=== PATIENT | male | born 1975 | race African-American/Black ===

== ENCOUNTER 2016-04-28 05:07 | Inpatient (IN) | payer OTHER ==
[~2016-04-28] VITALS: Ht 180.3 cm; Wt 55.8 kg
[2016-04-28] VITALS (49 sets, daily range): BP systolic 128–268; BP diastolic 80–167
--- NOTE | ~2016-04-28 | EKG ---
[address] [place] [address] ELECTROCARDIOGRAM REPORT Name: WANDY CURTIS Room #: 242-P ADM IN M.R.#: [id number] Admission: 04/28/16 Attend Phys: Gulshan Salinas Discharge: Date of : 77 Report #: [id number] THIS REPORT FOR: //name// [facility] ED Test Date: 2016-04-28 Test Time: 05:07:05 Pat Name: WANDY PAYNETRINA Department: Room: [facility] Gender: M Director Business Development: . 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
--- NOTE | ~2016-04-28 | HC ---
[facility] [place] [address] [place] [address] CONSULTATION Name: WANDY CURTIS Room #: 242-P [facility] IN M.R.#: [id number] Admission: 04/28/16 Attend Phys: Gulshan Salinas Discharge: Date of : 77 Report #: [id number] THIS REPORT FOR: //name// CC: FAM unknown Gulshan Salinas DATE OF SERVICE: 05/11/2016 REFERRING PROVIDER: Gulshan Salinas MD. REASON FOR CONSULTATION: Respiratory failure with request for tracheostomy and PEG tube placement. HISTORY OF PRESENT ILLNESS: The patient is a 40-year-old -[place] male with a history of poorly controlled diabetes mellitus since age 8, who has had multiple hospitalizations secondary to complications related to poor glycemic control. The patient was recently found to have an outside cardiac arrest and has been admitted to our facility for the past 2 weeks where he has been intubated on the ventilator with no purposeful movement and showing significant seizure activity. The patient has been on hemodialysis secondary to end-stage renal disease and as he is unable to be weaned from the ventilator, a request was made for evaluation for tracheostomy and PEG tube placement. PAST MEDICAL HISTORY: Diabetes mellitus, hypertension, end-stage renal disease on hemodialysis, dementia and possible schizophrenia. HOME MEDICATIONS: Aspirin, oxcarbazepine, Lipitor, trazodone, insulin, Abilify, Tylenol, hydralazine, Sevelamer, oxycodone, ipratropium, albuterol, Ativan, Geodon, Epogen, Pulmicort, clonidine, Benadryl, Zofran, carvedilol, diltiazem and lisinopril. ALLERGIES: To NSAIDs. FAMILY HISTORY: Reviewed and noncontributory. SOCIAL HISTORY: The patient does not utilize alcohol or illicit drugs, but does smoke cigarettes. REVIEW OF SYSTEMS: Unobtainable secondary to the patient's intubated, nonresponsive status. PHYSICAL EXAMINATION: VITAL SIGNS: Temperature 99.7, pulse 91, respirations 27, blood pressure 156/78. He weighs 143 pounds. GENERAL: He is intubated with no purposeful movement, but he is in no acute distress. [address] [address] CONSULTATION Name: WANDY CURTIS Cisco Room #: 242-P [facility] IN [facility].#: [id number] Admission: 04/28/16 Attend Phys: Gulshan Salinas Discharge: Date of : 77 Report #: [id number] HEENT: Normocephalic, atraumatic. Sclerae are anicteric. NECK: Supple, without lymphadenopathy. Trachea midline. HEART: Tachycardic, but regular rhythm. LUNGS: Coarse breath sounds at the bases bilaterally. ABDOMEN: Soft, nontender, nondistended. GENITOURINARY: Normal external male genitalia. EXTREMITIES: No clubbing or cyanosis, but does have 1+ edema of the bilateral lower extremities. NEUROLOGIC: Does not respond to verbal or painful stimuli. PSYCHIATRIC: Unobtainable secondary to he is intubated, nonresponsive status. SKIN AND INTEGUMENT: No abnormal lesions or moles. LABORATORY AND X-RAY DATA: CBC showed a white blood cell count of 18,500, hemoglobin 7.2, platelets 325,000. He has a left shift with 93% neutrophils. Creatinine is 7.1, albumin was low at 2.2. Chest x-ray shows no acute process. ASSESSMENT AND PLAN: A 40-year-old -[place]ovenian male with respiratory failure who is ventilator dependent as well as an outside hospital cardiac arrest with no purposeful movement at this time and suspicion for anoxic brain injury. 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 The patient's prognosis overall is quite poor; however, in light of the family's wishes to proceed, he is certainly a candidate for tracheostomy and PEG tube placement. I would request 1 final conversation with the patient's family and decision maker to discuss the possibility of palliative care prior to proceeding to the operating room, however. For that reason, I will schedule the patient in the operating room on Wednesday morning to give enough time for those discussions to occur hopefully tomorrow. I sincerely appreciate this consult. I will follow along and leave any further recommendations in the patient's chart as appropriate. <ELECTRONICALLY SIGNED> By: Casey Sagastume MD, FACS 05/13/16 0736 1551 1622 Casey Sagastume MD, FACS /nt
--- NOTE | ~2016-04-28 | EEG ---
[facility] [place] [address] [place] [address] ELECTROENCEPHALOGRAM Name: WANDY CURTIS Room #: 242-P ADM IN M.R.#: [id number] Admission: 04/28/16 Attend Phys: Gulshan Berman Discharge: Date of : 77 Report #: [id number] THIS REPORT FOR: //name// CC: FAM unknown Gulshan Salinas INDICATIONS: The patient is a 40-year-old male who has been in status epilepticus. The patient is currently unresponsive on the ventilator. DESCRIPTION: At a sensitivity of 3 mcv, the record consists of low amplitude, 3-4 cycle per second activity, which is diffuse and bilaterally symmetrical. EKG artifact is noted. On this recording, very intermittent sharp waves were seen towards the end of the recording, and predominant over the frontal head regions. There is no evidence of status epilepticus. IMPRESSION: This is an abnormal adult record, because of significant attenuation of the background record. There is no evidence of status epilepticus on this recording. <ELECTRONICALLY SIGNED> By: Nel Blood DO 05/02/16 0834 1547 1805 Nel Blood DO /nt
--- NOTE | ~2016-04-28 | EEG ---
[facility] [address] [place] [address] ELECTROENCEPHALOGRAM Name: WANDY CURTIS Room #: 242-P ADM IN M.R.#: [id number] Admission: 04/28/16 Attend Phys: Gulshan Berman Discharge: Date of : 77 Report #: [id number] THIS REPORT FOR: //name// CC: FAM unknown Gulshan Salinas DATE OF SERVICE: 04/29/2016 This patient is being evaluated for the possibility of seizure. EEG was done by placing the electrodes by standard 10-20 system of electrode placement. Both referential and sequential montages were used for recording. Background activity in this patient's EEG goes to about 9 Hz and 30-40 microvolt. It is reasonably well formed on occasions, although alpha coma cannot be fully excluded. EEG is very unusual and the fact that the patient will have a pretty nicely formed background activity and then the EEG will become very low voltage and flat, sometime with seizure and sometime without seizure clinically. Photic stimulation was unremarkable. IMPRESSION: This is a very unusual EEG because this patient will have reasonably well formed background activity and then EEG will become very low voltage sometime with clinical seizure and sometime without clinical seizure. That is an extremely unusual finding. If strong clinical correlation is present, it may be desirable to treat this patient with anticonvulsant and repeat the EEG is about 24 hours. Clinical correlation is recommended. Thank you very much for this referral. <ELECTRONICALLY SIGNED> By: Nando Daigle MD 05/01/16 1235 1805 1817 MD zina Roth
--- NOTE | ~2016-04-28 | HC ---
[facility] [place] [address] [place] [address] CONSULTATION Name: WANDY CURTIS Cisco Room #: 242-P ADM IN M.R.#: [id number] Admission: 04/28/16 Attend Phys: Gulshan Salinas Discharge: Date of : 77 Report #: [id number] THIS REPORT FOR: //name// CC: FAM unknown Gulshan Salinas DATE OF SERVICE: 04/28/2016 REASON FOR CONSULTATION: Renal failure and related issues. HISTORY OF PRESENT ILLNESS: This is a 40-year-old male who has end-stage renal disease and is chronic hemodialysis patient. We have seen him in the hospital numerous times. The last time he was in [facility] was in the mid portion of January 2016 and he presented with his usual need for dialysis, blood pressure control. Over the recent couple of months, he has been getting more of a hospital care at [facility]. In fact, he was in [facility] as recently as 3 days ago. I am uncertain when he was actually discharged, but he was discharged back to his care center, that is, [facility]. Reportedly, early this morning, the patient was found unresponsive and had a cardiac arrest. EMS was called. They did resuscitative measures and were able to revive him back to having a blood pressure and a heart rate. He presented to the emergency room at 5:05 this morning. The additional resuscitative measures were carried out. The patient was then admitted to the intensive care unit. He is in the ICU at this time on the ventilator. He has been started on hypothermia protocol. I would note that his temperature was already down to 34 degrees centigrade and I have asked the nursing staff to stop the chilled saline infusion as he is already volume overloaded. From a renal standpoint, the patient has end-stage renal disease and is a chronic hemodialysis patient. He normally dialyzes 3 times weekly. He has had major problems with compliance, blood pressure control. His blood pressure does tend to be very high most of the time. He also has diabetes mellitus chronically on insulin. He has had previous left upper arm fistula placement. He has had a previous left knee surgery. MEDICATIONS: Listed on admission include some clonidine 0.3 mg t.i.d., carvedilol 25 mg b.i.d., diltiazem 300 mg daily, lisinopril 40 mg daily, aspirin, atorvastatin 40 mg daily, trazodone 50 mg at bedtime, insulin, Renvela as a phosphate binder, multiple p.r.n. medications. ALLERGIES: Listed are NONSTEROIDALS; reaction is unknown. FAMILY HISTORY: Noncontributory. SOCIAL HISTORY: The patient has been in and out of the [facility] for some time, but mostly has been in the hospital [place] [address] CONSULTATION Name: KIRSTENWANDY Room #: 242-P [facility] IN M.R.#: [id number] Admission: 04/28/16 Attend Phys: Gulshan Salinas Discharge: Date of : 77 Report #: [id number] REVIEW OF SYSTEMS: Unobtainable from the patient or from the records at this time. PHYSICAL EXAMINATION: GENERAL: The patient is seen in the intensive care unit. He is orally intubated. VITAL SIGNS: Blood pressure 183/105, heart rate is 74, respiratory rate 16, oxygen saturation 100%, temperature ____ degrees centigrade. HEENT: Shows pupils are 2 mm. They are mildly responsive. Sclerae nonicteric. Oral mucosa is moist. NECK: Supple. No JVD. CHEST: Shows coarse breath sounds bilaterally. HEART: Has a regular rate and rhythm. ABDOMEN: Quiet. No organomegaly or masses are palpable. EXTREMITIES: Show diffuse 1-2+ peripheral edema. Extremities are cool, commensurate with his hypothermia. Left upper arm fistula is pulsatile. There is some movement/myoclonus in all extremities. He does not appear to be exhibiting any seizure behavior, but I cannot tell at this point whether this is posturing or whether this is purposeful movement. RADIOLOGICAL STUDIES: Chest x-ray is reviewed and shows interstitial infiltrates consistent with early pulmonary edema. LABORATORY DATA: Sodium 141, potassium 5.7, chloride 101, bicarbonate 16, BUN 33, creatinine 6.3, glucose 119, calcium 9.2. Lactate 11.1. INR 1.1. White count 16.4; hemoglobin 9.0; hematocrit 28.1; platelets 574,000. Differential on the white count 86 segs, 10 lymphs, 2 monos, 1 eosinophil. Blood gas from the emergency room, pH 7.15, pCO2 of 40.7, pO2 of 540, lactate ____ was 12.33. ASSESSMENT: 1. Patient is post alf-uf-fddinfwe cardiac arrest. He has been resuscitated. He is back to being hypertensive. Heart rate is okay. He is on hypothermia protocol and we will see how he responds to all of these measures. Obviously, he is critically ill at this time. 2. End-stage renal disease. Volume is up. Potassium is up. We need to dialyze him today and we will get that ordered. 3. Lactic acidosis due to his hypotension with his code. Blood pressure is doing better now, so he is perfusing; this should correct. 4. Hyperkalemia. We will dialyze him on a low-potassium dialysate today. 5. Longstanding hypertension. Usually very severe. We will see how he responds to volume removal today. Post-arrest, we do not want to drop his pressure too low. We will see how he responds to dialysis. 6. Leukocytosis with left shift. Cultures drawn on antibiotics. We will see if anything grows out. [facility] [address] [place] [address] CONSULTATION Name: WANDY CURTIS Room #: 242-P [facility] IN [facility]#: [id number] Admission: 04/28/16 Attend Phys: Gulshan Salinas Discharge: Date of : 77 Report #: [id number] PLAN: 1. Dialysis today. I have talked with the dialysis nurse. We will run him 4 hours on a 2 potassium dialysate with 4 L of ultrafiltration. 2. Pending his response to dialysis, we will consider re-adding some of his usual antihypertensive meds down an NG-tube, but I expect his blood pressure will drop with dialysis. 3. I stopped the additional hypothermia infusions due to his volume overload and the fact that he is already down to target temperature. 4. Neurological evaluation ongoing post-arrest. Continue with hypothermia. 5. Respiratory failure on the vent. Again, he can do some volume improvement and we will remove about 4 L with dialysis. 6. Very close monitoring in this critically ill patient. <ELECTRONICALLY SIGNED> By: Derick Burrell MD 04/29/16 0803 0932 1035 Derick Burrell MD /craig
--- NOTE | ~2016-04-28 | EEG ---
[facility] [address] [place] [address] ELECTROENCEPHALOGRAM Name: WANDY CURTIS Room #: 242-P ADM IN M.R.#: [id number] Admission: 04/28/16 Attend Phys: Gulshan Berman Discharge: Date of : 77 Report #: [id number] THIS REPORT FOR: //name// CC: FAM unknown Gulshan Salinas DATE OF SERVICE: 04/28/2016 This patient is being evaluated for the possibility of seizures. He is post code. EEG was done by placing the electrodes by standard 10-20 system of electrode placement. Both referential and sequential montages were used for recording. Background activity in this patient goes up to about 8 Hz and 30-40 microvolts. Photic stimulation is unremarkable. IMPRESSION: This patient's EEG does not demonstrate any clear-cut epileptiform activity. It demonstrates well defined cortical activity on both sides. If further prognostication is desired, the patient will need serial EEGs. Clinical correlation is recommended. <ELECTRONICALLY SIGNED> By: Nando Daigle MD 05/01/16 1235 1826 1833 Nando Daigle MD /nt
--- NOTE | ~2016-04-28 | EEG ---
[facility] [place] [address] [place] [address] ELECTROENCEPHALOGRAM Name: WANDY CURTIS Room #: 242-P ADM IN M.R.#: [id number] Admission: 04/28/16 Attend Phys: Gulshan Berman Discharge: Date of : 77 Report #: [id number] THIS REPORT FOR: //name// CC: FAM unknown Gulshan Salinas DATE OF EK05/04/2016 This patient is being evaluated for encephalopathy as well as seizures. This patient's background activity is slow and poorly formed. It would appear that it is about 7 Hz and 10 microvolts. It continued to be low voltage activity, but on occasions it becomes even lower voltage. Photic stimulation was unremarkable. No active epileptiform activity was noticed during this record. IMPRESSION: This is an abnormal EEG because it is disorganized and poorly formed. That typically occur with encephalopathy. I did not see any definite epileptiform activity during this EEG. Thank you very much for this referral. <ELECTRONICALLY SIGNED> By: Nando Daigle MD 05/08/164 58 1394 Nando Daigle MD /nt
--- NOTE | ~2016-04-28 | O ---
[facility] [place] [address] [address] OPERATIVE REPORT Name: WANDY CURTIS Cisco Room #: 242-P [facility] IN .R.#: [id number] Admission: 04/28/16 Attend Phys: Gulshan Salinas Discharge: Date of : 77 Report #: [id number] THIS REPORT FOR: //name// CC: FAM unknown Gulshan Salinas DATE OF SERVICE: 05/13/2016 PREOPERATIVE DIAGNOSES: 1. Respiratory failure, is ventilator dependent. 2. Brain . 3. Diabetes mellitus. 4. Hypertension. 5. End-stage renal disease, on hemodialysis. 6. Possible schizophrenia. 7. Documented dimension. POSTOPERATIVE DIAGNOSES: 1. Respiratory failure, is ventilator dependent. 2. Brain . 3. Diabetes mellitus. 4. Hypertension. 5. End-stage renal disease, on hemodialysis. 6. Possible schizophrenia. 7. Documented dimension. PROCEDURES PERFORMED: 1. Tracheostomy utilizing a #8 Shiley cuffed tracheostomy appliance. 2. A thorough esophagogastroduodenoscopy (EGD) with placement of a percutaneous endoscopic gastrostomy (PEG) tube. SURGEON: Casey Sagastume M.D. WAREHOUSE LABORER: Braden Ayala M.D. ANESTHESIA: General endotracheal anesthesia. ESTIMATED BLOOD LOSS: Minimal (less than 5 mL). COMPLICATIONS: None appreciated. SPECIMENS: None. INDICATIONS: The patient is a 40-year-old -[place] male with a history of poorly controlled diabetes mellitus who has had multiple hospitalizations secondary to complications related to poor glycemic control. He was recently [facility] [address] [place] [address] OPERATIVE REPORT Name: KIRSTENWANDY Room #: 242-P [facility] IN [facility]#: [id number] Admission: 04/28/16 Attend Phys: Gulshan Salinas Discharge: Date of : 77 Report #: [id number] found to have an outside of the hospital cardiac arrest and has been admitted with respiratory failure for the past 2 weeks with oral tracheal intubation and has poor neurologic function with documented brain on EEG and nuclear medicine imaging. The patient's family has requested maximal medical therapy and as he has been intubated for greater than two weeks, indication was for tracheostomy and PEG tube placement today. DESCRIPTION OF PROCEDURE: After explaining the risks, benefits and alternatives of the procedure and obtaining consent from the patient's public medical office administrator, the patient was brought to the operating room and placed supine on the operating room bed. After conducting a thorough timeout procedure verifying correct patient and procedure, the patient was given general endotracheal anesthesia via his indwelling oral tracheal tube. Once adequate anesthesia was obtained, his SCDs were hooked up to pneumatic compression device and he was already on an inpatient regimen of IV antibiotic therapy, which is all in line with the SCIP protocol. We began the procedure by performing the EGD with PEG tube placement first. The [employer] upper endoscope was used to intubate the oropharynx and was traversed down into the esophagus with ease. This was advanced into the stomach where the pylorus was identified and intubated. The scope was advanced to the second portion of duodenum where slow careful withdrawal of the scope showed no evidence of duodenitis, gastritis, esophagitis, mass lesions or ulcerations. The scope was placed back in the gastric lumen where the stomach was fully insufflated. The lights were turned out in the operating room and we had easy transillumination through the abdominal wall at the site of prior scarring. I saw no intraluminal evidence of a prior PEG tube; however, his scars were consistent with a prior feeding tube. Nonetheless, external manual ballottement at this location showed confirmed evidence of the proper placement and as such that area in the left upper quadrant was prepped and draped in standard surgical sterile fashion. 5 mL of 1% plain lidocaine were used to anesthetize the skin at that location and a #11 bladed scalpel was used to create a 7 mm transverse incision at this location. The needle -- sheath apparatus was directed through this incision site and through the anterior gastric wall under direct vision with the EGD scope and the needle was removed. A wire was placed down the sheath, which was then grasped using a loop snare down the EGD scope. The scope was then removed via the oropharynx, bringing the wire through with it. I then fixed the pole type PEG tube to the wire and proceeded to pull the wire through the abdominal wall, which brought the PEG tube down the mouth and through the anterior gastric and anterior abdominal crisostomo. The scope was replaced back in the gastric lumen where the internal bumper was seen to reside in a snug, but not extremely tight fashion to the gastric wall so as to prevent erosions. This measured 2 cm externally at the skin level. The external flange clamp and end-adaptor were then applied to the PEG tube. The stomach was fully desufflated and the scope was removed via the oropharynx and passed off the field and we turned our attention to the tracheostomy portion of the procedure. After sterilely prepping and draping the anterior neck, I proceeded to make a 1.5 cm transverse incision midway between the suprasternal notch and the [facility] [address] [place] [address] OPERATIVE REPORT Name: WANDY CURTIS Room #: 242-P [facility] IN [facility]#: [id number] Admission: 04/28/16 Attend Phys: Gulshan Dean Rita Discharge: Date of : 77 Report #: [id number] cricothyroid membrane. Electrocautery was used to carry this down through skin and subcutaneous tissues and the platysma muscle revealing the strap muscles posteriorly. The strap muscles were retracted laterally and I opened the avascular plane down the midline using electrocautery, which brought us to the isthmus of the thyroid. The isthmus of the thyroid was then transected using electrocautery, which brought me to the anterior tracheal rings. The second tracheal ring was identified and a #11 bladed scalpel was used to create H type flaps in the second tracheal ring. Curved Parker scissors were used to remove the flaps from the H type incision and a tracheal steak tenderizer machine device was utilized to dilate the tract of the tracheotomy. Anesthesia left the balloon down on the endotracheal tube and withdrew it until the tip of the endotracheal tube was just cephalad to the tracheotomy and I proceeded to place a #8 cuffed Shiley tracheostomy appliance through the tracheotomy without issue. The balloon was inflated and the inner cannula was placed and the tracheostomy was attached to the ventilator showing immediate return of end tidal CO2 as well as good tidal volume. The endotracheal tube was then removed via the oropharynx by anesthesia and I proceeded to secure the tracheostomy appliance into place using 2-0 nylon to suture the tracheostomy appliance down as well as utilizing a foam tracheostomy strap for added security. At the end of the procedure, all instrument, needle and sponge counts were correct. The patient tolerated the procedure without incident, remained ventilated through this new placed tracheostomy and was transitioned back to the ICU in stable condition with no apparent complications. <ELECTRONICALLY SIGNED> By: Casey Sagastume MD, FACS 05/14/16 0740 1852 [id number] Casey Sagastume MD, FACS /nt
--- NOTE | ~2016-04-28 | EEG ---
[facility] [place] [address] ELECTROENCEPHALOGRAM Name: WANDY CURTIS Room #: 242-P ADM IN M.R.#: [id number] Admission: 04/28/16 Attend Phys: Gulshan Berman Discharge: Date of : 77 Report #: [id number] THIS REPORT FOR: //name// CC: FAM unknown Gulhsan Salinas DATE OF EE04/30/2016 This repeat EEG was done for comparison with yesterday's EEG. EEG was done by placing the electrodes by standard 10-20 system of electrode placement. Both referential and sequential montages were used for recording. Background activity continued to be suppressed on both sides. It appeared to be about 5-6 Hz and 10-15 microvolt. EEG continued to demonstrate what appeared to be triphasic waves in the frontal area. Consideration was given that it is an EKG artifact, but it does not correlate with EKG channels. On occasion these triphasic waves become better, which is unusual for the triphasic waves. On other occasions, patient appeared to have seizures where the patient's background activity changes significantly and spike activity is seen in the left cerebral hemisphere. Whether some of those triphasic looking waves are spike and slow wave activity is not certain, but appear likely. IMPRESSION: This is a severely abnormal EEG, which demonstrates finding consistent with seizure disorder, which appeared to be arising from the left cerebral hemisphere. The patient also appeared to be showing what looks like triphasic waves, which can occur with encephalopathy. I will suggest either a continuous EEG monitoring in this patient or doing the EEG on a regular interval in this patient as clinically indicated. Clinical correlation is recommended. The EEG was discussed with Dr. Blood. Thank you very much for this referral. <ELECTRONICALLY SIGNED> By: Nando Daigle MD 05/01/16 1235 1839 2046 Nando Daigle MD /nt
--- NOTE | ~2016-04-28 | 2DMMODE ---
[facility] [place] [address] 2 D/M-MODE ECHOCARDIOGRAM Name: WANDY CURTIS Room #: 242-P [facility] IN .R.#: [id number] Admission: 04/28/16 Attend Phys: Gulshan Pat Discharge: Date of : 77 Date of Service: 04/28/16 1134 Report #: [id number] THIS REPORT FOR: //name// Transthoracic Echocardiography Ordering physician: Velvet Nair Referring physician: Velvet Nair Courtesy Clerk: SEAN Olivo Indications/History: S/P cardiac arrest, DM, HTN. BP: 167 / HR: 72bpm Height: 71in Weight: 189.6lb 98 Study data: M-mode, complete 2D, complete spectral Doppler, and color Doppler. Location: Bedside. Routine. Image quality was good. 2D measurements Normal Normal LVID ED 42mm 36-57 IVS ED 17.7mm 6-11 LVID ES 29.9mm 23-40 LVPW ED 15.6mm 6-11 LA volume 28ml/m2 16-28 AoRoot diam 30.8mm 21-37 index ED LVOT diameter 20mm 18-23 Findings: Left ventricle: The cavity size was normal. Wall thickness was increased in a pattern of moderate LVH. Systolic function was normal. The estimated ejection fraction was in the range of 50% to 55%. Wall motion was normal. Right ventricle: The cavity size was normal. Systolic function was normal. Right atrium: The atrium was normal in size. Left atrium: The atrium was normal in size. Volume index: 28ml/m2 (S). Aortic valve: Trileaflet; mildly calcified leaflets. Doppler: There was no stenosis. No regurgitation. Peak velocity: 131.2cm/s (S). Mitral valve: Structurally normal valve. Doppler: [facility] [address] [place] [address] 2 D/M-MODE ECHOCARDIOGRAM Name: WANDY CURTIS Room #: 242-P [facility] IN .[place].#: [id number] Admission: 04/28/16 Attend Phys: Gulshan Moran Adilia Discharge: Date of : 77 Date of Service: 04/28/16 1134 Report #: [id number] There was no evidence for stenosis. No regurgitation. Peak E-wave velocity: 92.9cm/s. Peak gradient: 3.4mm Hg (D). Peak A-wave velocity: 72.4cm/s. Tricuspid valve: Structurally normal valve. Doppler: There was no evidence for stenosis. Mild regurgitation. Regurgitant peak velocity: 332.3cm/s. Peak RV-RA gradient: 44mm Hg (S). Pulmonic valve: Structurally normal valve. Doppler: There was no evidence for stenosis. Trivial regurgitation. Pericardium: There wasa smallpericardial effusion. Aorta: Aortic root: The aortic root was normal in size. Pulmonary artery: Systolic pressure was estimated to be 60mm Hg. Diastolic function: Features are consistent with a pseudonormal left ventricular filling pattern, with concomitant abnormal relaxation and increased filling pressure (grade 2 diastolic dysfunction). Systemic veins: Inferior vena cava: The vessel was dilated; respirophasic changes in dimension were absent. Conclusions 1. Left ventricle: The cavity size was normal. Wall thickness was increased in a pattern of moderate LVH. Systolic function was normal. The estimated ejection fraction was in the range of 50% to 55%. Wall motion was normal. 2. Aortic valve: Trileaflet; mildly calcified leaflets. There was no stenosis. No regurgitation. 3. Mitral valve: Structurally normal valve. No regurgitation. 4. Pericardium, extracardiac: There wasa smallpericardial effusion. 5. Pulmonary arteries: Systolic pressure was estimated to be 60mm Hg. <ELECTRONICALLY SIGNED> By: Giancarlo Palacios MD, [facility] 04/28/16 1253 1134 1253 Giancarlo Palacios MD, [facility] /arvin
--- NOTE | ~2016-04-28 | EEG ---
[facility] [place] [employer] [place] [address] ELECTROENCEPHALOGRAM Name: WANDY CURTIS Room #: 242-P ADM IN M.R.#: [id number] Admission: 04/28/16 Attend Phys: Gulshan Berman Discharge: Date of : 77 Report #: [id number] THIS REPORT FOR: //name// CC: FAM unknown Gulshan Salinas DATE OF SERVICE: 05/06/2016 This patient is being evaluated for the possibility of seizure. EEG was done by placing the electrodes by standard 10-20 system of electrode placement. Both referential and sequential montages were used for recording. The patient's EEG is similar to the previous EEG. It does show alpha rhythm of about 9 Hz and 15 microvolt. Photic stimulation was unremarkable. No active epileptiform activity was noticed. IMPRESSION: This patient's EEG is unchanged since last time. It shows intermittently alpha rhythm and then it becomes flat. It is not possible to say with certainty that is alpha rhythm and not alpha coma. No active epileptiform activity was noticed. Thank you very much for this referral. <ELECTRONICALLY SIGNED> By: Nando Daigle MD 05/08/16 2054 0 1 Nando Daigle MD /nt
--- NOTE | ~2016-04-28 | DEA ---
[facility] [place] [address] SUMMARY Name: WANDY CURTIS Cisco Room #: 436-P [facility]..#: [id number] Admission: 04/28/16 Attend Phys: Gulshan Salinas Discharge: 05/20/16 Date of : 77 Report #: [id number] THIS REPORT FOR: //name// CC: FAM unknown Gulshan Salinas DATE OF SERVICE: 05/20/2016 DATE OF : 05/20/2016. The patient is a 40-year-old -[place] male who is a resident at [facility], who was admitted 04/28/2016 with outside cardiac arrest of approximately 24 minutes. He was also found to have a blood sugar of 30 at the facility. He was intubated. He has a history of end-stage renal disease, on dialysis. He was admitted for the above concerns and a prolonged hospitalization. He did have ongoing seizures. EEG was obtained which showed no purposeful brain activity and the family did ultimately agree to comfort care measures only. He was extubated and did pass away peacefully on 05/20/2016 at 10:10 a.m. The body was discharged to the home of the family's choice. <ELECTRONICALLY SIGNED> By: Percy Cali, 06/15/16 1622 1250 1325 Percy Cali, /nt
[~2016-04-28 05:07] MED LIST: ABILIFY MAINTE400 M1 IM; AMLODIPINE BESYL5 M1 PO; APAP500 PO; ASPIRIN EC81 M1; ASPIRIN EC81 M1 PO; ATORVASTATIN CA40 MG PO; AUGMENTIN 875875 MG PO; CARDIZEM CD 30300 M1 PO; CARVEDILOL25 MG PO; CEPACOL SORE T1 EAC8 PO; CLONIDINE HCL0.3 M2 PO; CLONIDINE0.1 PO; COREG25 MG PO; DEPAKOTE500 MG; DOXYCYCLINE 10100 MG PO; DUONEB 2.5-0.5 M3 ML INH; DUONEB 2.5-0.5 M3 ML PO; ENALAPRIL MALEAT5 M1 PO; FLAGYL500 MG PO; GLUCAGEN1 M2 IM; HUMALOG100 UNIT/1; HYDRALAZINE 2525 MG PO; HYDRALAZINE 5050 MG PO; LABETALOL HCL200 MG PO; LANTUS SOL100 UNIT/1 SQ; LANTUS100 UNIT/M SUBQ; LANTUSSOLASTAR; LIDOCAINE VISC100 ML MM; LIPITOR40 MG PO; LISINOPRIL10 MG; NEPRO CARB STE237 ML PO; NORVASC10 MG PO; NOVOLOG100 UNIT/1 SQ; NOVOLOG100 UNIT/1 SUBQ; OXCARBAZEPINE600 MG PO; PERCOCET PO; PHENERGAN 25 MG25 M1 PO; PRINIVIL40 MG PO; PROSTAT; PROSTATE 2.4 C1 EACH PO; PROSTATE HEALT1 EAC1 PO; RENVELA800 MG PO; RISPERDAL2 MG; SEROQUEL 50 MG50 MG PO; TRAZODONE HCL50 MG PO; TRILEPTAL600 MG PO; TYLENOL325 MG PO; VANCO 1 GR1 GM/250 M IV; VANCOCIN 250 M250 M1 PO; VASOTEC10 MG PO; ZOFRAN ODT4 MG PO
[2016-04-28 05:29] LABS: ABG SAMPLE TYPE ARTERIAL; BE(vivo) -13.9 mmol/L (-2 to +3); O2(CT) 15.1 mL/dL (15.0-23.0); O2Hb 97.3 % (92.0-98.0); PCO2 40.7 mmHg (35.0-45.0); PO2 540.9 mmHg (80.0-100.0); STICK SITE R.RADIAL; pH 7.155 (7.360-7.450); sO2 99.8 % (92.0-98.0); tCO2 15.3 mmol/L (24.0-30.0)
[2016-04-28 05:30] LABS: LACTATE 12.33 mmol/L (0.5-2.0); TIDAL VOLUME 450 ml
[2016-04-28 05:48] LABS: ABSOLUTE NEUTROPHILS 14.2 thou/uL (1.4-8.2); BASOPHILS 0.3 % (0.0-2.0); EOSINOPHILS 1.1 % (0.0-3.0); HEMATOCRIT 28.1 % (42.0-52.0); LYMPHOCYTES 9.8 % (24.0-44.0); MANUAL DIFF NO; MCH 31.3 pg (26.0-34.0); MCV 97.9 fL (80.0-100.0); MONOCYTES 2.4 % (1.0-8.0); PLATELET COUNT 574 thou/uL (150-400); POLYS 86.4 % (36.0-66.0); RBC 2.87 mil/uL (4.50-6.00); RDW 19.6 % (10.5-14.5); WBC 16.4 thou/uL (4.0-11.0)
[2016-04-28] MEDS ORDERED: ATIVAN0.5 MG PO (06:04)
[2016-04-28 06:09] LABS: CALCIUM 9.2 mg/dL (8.5-10.1); CREATININE 6.3 mg/dL (0.6-1.3); POTASSIUM 5.7 mmol/L (3.5-5.1)
[2016-04-28 06:20] LABS: APTT 27.1 Seconds (24.5-32.8); INR 1.1; PROTIME 11.7 Seconds (9.3-11.4)
[2016-04-28] MEDS ORDERED: GEODON20 MG IM (07:34)
[2016-04-28] MEDS ORDERED: LIPITOR40 MG PO (07:36)
[2016-04-28] MEDS ORDERED: EPOGEN10000 UNIT IV (07:38)
[2016-04-28] MEDS ORDERED: PULMICORT0.5 MG/22 INH (07:39)
[2016-04-28] MEDS ORDERED: CATAPRES-TTS 10.1 M2 TRANSDERM (07:40)
[2016-04-28] MEDS ORDERED: [UNRECOGNIZED DRUG - CODE] PO (07:42)
[2016-04-28] MEDS ORDERED: HUMALOG MI100 UNIT/3 SUBQ (07:44)
[2016-04-28] MEDS ORDERED: LEVEMIR SUBQ (07:47)
[2016-04-28 10:22] LABS: MAGNESIUM 2.6 mg/dL (1.8-2.4); PHOSPHORUS 8.8 mg/dL (2.5-4.9); TROPONIN-I 0.12 ng/mL (<0.04-0.07)
[2016-04-28 10:48] LABS: ABG SAMPLE TYPE ARTERIAL; BE(vivo) 0.1 mmol/L (-2 to +3); HCO3 27.7 mmol/L (22.0-26.0); LACTATE 1.63 mmol/L (0.5-2.0); O2(CT) 15.5 mL/dL (15.0-23.0); O2Hb 98.4 % (92.0-98.0); PCO2 59.8 mmHg (35.0-45.0); PO2 239.4 mmHg (80.0-100.0); STICK SITE R.RADIAL; pH 7.283 (7.360-7.450); sO2 99.4 % (92.0-98.0); tCO2 29.5 mmol/L (24.0-30.0)
[2016-04-28 10:51] LABS: TIDAL VOLUME 450 ml
[2016-04-28 11:47] LABS: HEMATOCRIT 29.7 % (42.0-52.0); HEMOGLOBIN 9.7 gm/dL (14.0-18.0); MCH 30.8 pg (26.0-34.0); MCHC 32.8 % (28.0-37.0); MCV 93.9 fL (80.0-100.0); RBC 3.16 mil/uL (4.50-6.00); RDW 19.2 % (10.5-14.5); WBC 16.1 thou/uL (4.0-11.0)
[2016-04-28 11:57] LABS: ALBUMIN 2.8 g/dL (3.4-5.0); CALCIUM 8.2 mg/dL (8.5-10.1); CREATININE 5.9 mg/dL (0.6-1.3); PHOSPHORUS 5.9 mg/dL (2.5-4.9); POTASSIUM 5.1 mmol/L (3.5-5.1)
[2016-04-28 18:57] LABS: HEMATOCRIT 35.1 % (42.0-52.0); HEMOGLOBIN 11.2 gm/dL (14.0-18.0); MCH 30.2 pg (26.0-34.0); MCV 94.4 fL (80.0-100.0); PLATELET COUNT 487 thou/uL (150-400); RBC 3.72 mil/uL (4.50-6.00); RDW 19.4 % (10.5-14.5); WBC 17.7 thou/uL (4.0-11.0)
[2016-04-28 19:00] LABS: MANUAL DIFF YES
[2016-04-28 19:13] LABS: APTT 25.3 Seconds (24.5-32.8); INR 1.1; PROTIME 11.3 Seconds (9.3-11.4)
[2016-04-28 19:22] LABS: CALCIUM 8.8 mg/dL (8.5-10.1); CK-MB MASS 72.2 ng/mL (<0.5-3.6); CREATININE 3.7 mg/dL (0.6-1.3); MAGNESIUM 2.1 mg/dL (1.8-2.4); PHOSPHORUS 3.7 mg/dL (2.5-4.9); POTASSIUM 4.1 mmol/L (3.5-5.1); TROPONIN-I 0.23 ng/mL (<0.04-0.07)
[2016-04-28 19:32] LABS: ABSOLUTE NEUTROPHILS 16.6 thou/uL (1.4-8.2); ANISOCYTOSIS 2+; TOTAL CELL COUNT 100
[2016-04-29] VITALS (22 sets, daily range): BP systolic 112–185; BP diastolic 78–107
[2016-04-29 04:02] LABS: ABG SAMPLE TYPE ARTERIAL; BE(vivo) 2.4 mmol/L (-2 to +3); HCO3 27.8 mmol/L (22.0-26.0); LACTATE 2.88 mmol/L (0.5-2.0); O2(CT) 16.5 mL/dL (15.0-23.0); O2Hb 98.1 % (92.0-98.0); PCO2 46.2 mmHg (35.0-45.0); PO2 164.5 mmHg (80.0-100.0); pH 7.397 (7.360-7.450); sO2 99.1 % (92.0-98.0); tCO2 29.2 mmol/L (24.0-30.0)
[2016-04-29 04:04] LABS: ABG COMMENT A/C MODE; STICK SITE R.RADIAL; TIDAL VOLUME 450 ml
[2016-04-29 05:26] LABS: ABSOLUTE NEUTROPHILS 13.8 thou/uL (1.4-8.2); BASOPHILS 0.1 % (0.0-2.0); EOSINOPHILS 0.1 % (0.0-3.0); HEMATOCRIT 37.3 % (42.0-52.0); HEMOGLOBIN 11.8 gm/dL (14.0-18.0); LYMPHOCYTES 5.1 % (24.0-44.0); MCH 29.9 pg (26.0-34.0); MCHC 31.5 % (28.0-37.0); MCV 94.9 fL (80.0-100.0); MONOCYTES 8.9 % (1.0-8.0); PLATELET COUNT 501 thou/uL (150-400); POLYS 85.8 % (36.0-66.0); RBC 3.93 mil/uL (4.50-6.00); WBC 16.1 thou/uL (4.0-11.0)
[2016-04-29 05:36] LABS: MANUAL DIFF NO
[2016-04-29 05:43] LABS: APTT 32.4 Seconds (24.5-32.8); INR 1.2
[2016-04-29 05:47] LABS: ALBUMIN 2.4 g/dL (3.4-5.0); CALCIUM 8.3 mg/dL (8.5-10.1); CREATININE 4.2 mg/dL (0.6-1.3); MAGNESIUM 2.1 mg/dL (1.8-2.4); POTASSIUM 4.5 mmol/L (3.5-5.1); TOTAL BILIRUBIN 0.2 mg/dL (<0.1-1.0); TOTAL PROTEIN 6.6 g/dL (6.4-8.2)
[2016-04-29 05:51] LABS: CK-MB MASS 35.7 ng/mL (<0.5-3.6); PHOSPHORUS 4.3 mg/dL (2.5-4.9); TROPONIN-I 0.1 ng/mL (<0.04-0.07)
[2016-04-30] VITALS (36 sets, daily range): BP systolic 93–169; BP diastolic 60–103
[2016-04-30 04:18] LABS: HEMATOCRIT 30.9 % (42.0-52.0); HEMOGLOBIN 9.9 gm/dL (14.0-18.0); MCH 30.2 pg (26.0-34.0); MCHC 32.1 % (28.0-37.0); MCV 94.2 fL (80.0-100.0); PLATELET COUNT 516 thou/uL (150-400); RBC 3.28 mil/uL (4.50-6.00); RDW 20.1 % (10.5-14.5); WBC 16.9 thou/uL (4.0-11.0)
[2016-04-30 04:21] LABS: MANUAL DIFF YES
[2016-04-30 04:36] LABS: ALBUMIN 2.5 g/dL (3.4-5.0); PHOSPHORUS 5.7 mg/dL (2.5-4.9); POTASSIUM 4.8 mmol/L (3.5-5.1)
[2016-04-30 04:41] LABS: CREATININE 5.7 mg/dL (0.6-1.3)
[2016-04-30 05:22] LABS: ABG SAMPLE TYPE ARTERIAL; BE(vivo) 1.2 mmol/L (-2 to +3); HCO3 26.4 mmol/L (22.0-26.0); LACTATE 1.41 mmol/L (0.5-2.0); O2(CT) 15.2 mL/dL (15.0-23.0); PCO2 44.6 mmHg (35.0-45.0); PO2 166.9 mmHg (80.0-100.0); STICK SITE R.BRACHIAL; TIDAL VOLUME 450 ml; sO2 99.1 % (92.0-98.0); tCO2 27.8 mmol/L (24.0-30.0)
[2016-04-30 07:28] LABS: ABSOLUTE NEUTROPHILS 14.4 thou/uL (1.4-8.2); TOTAL CELL COUNT 100
[2016-04-30 07:29] LABS: ANISOCYTOSIS 2+; HYPOCHROMASIA 1+; NUCLEATED RBCS 2 /100WBC
[2016-05-01] VITALS (71 sets, daily range): BP systolic 130–211; BP diastolic 73–106
[2016-05-01 05:03] LABS: HEMATOCRIT 25.4 % (42.0-52.0); HEMOGLOBIN 8.2 gm/dL (14.0-18.0); MCH 30.6 pg (26.0-34.0); MCHC 32.2 % (28.0-37.0); MCV 95.1 fL (80.0-100.0); RBC 2.67 mil/uL (4.50-6.00); RDW 19.8 % (10.5-14.5)
[2016-05-01 05:28] LABS: PLATELET COUNT 366 thou/uL (150-400)
[2016-05-01 05:29] LABS: MANUAL DIFF YES
[2016-05-01 05:46] LABS: ALBUMIN 2.1 g/dL (3.4-5.0); CALCIUM 7.9 mg/dL (8.5-10.1); CREATININE 4.8 mg/dL (0.6-1.3); POTASSIUM 3.9 mmol/L (3.5-5.1); TOTAL BILIRUBIN 0.2 mg/dL (<0.1-1.0); TOTAL PROTEIN 5.9 g/dL (6.4-8.2)
[2016-05-01 07:07] LABS: ABSOLUTE NEUTROPHILS 8.4 thou/uL (1.4-8.2); PLATELET ESTIMATE NORMAL; TOTAL CELL COUNT 100
[2016-05-01 07:08] LABS: ANISOCYTOSIS 2+; MACROCYTES 1+; MICROCYTES 1+
[2016-05-01 07:09] LABS: HYPOCHROMASIA 1+
[2016-05-02] VITALS (55 sets, daily range): BP systolic 150–219; BP diastolic 87–115
[2016-05-02 04:36] LABS: HEMATOCRIT 26.3 % (42.0-52.0); HEMOGLOBIN 8.6 gm/dL (14.0-18.0); MCH 31.2 pg (26.0-34.0); MCHC 32.6 % (28.0-37.0); MCV 95.8 fL (80.0-100.0); RBC 2.75 mil/uL (4.50-6.00); RDW 18.7 % (10.5-14.5); WBC 9.3 thou/uL (4.0-11.0)
[2016-05-02 04:49] LABS: ABG SAMPLE TYPE ARTERIAL; BE(vivo) 2.7 mmol/L (-2 to +3); LACTATE 0.99 mmol/L (0.5-2.0); O2(CT) 13.6 mL/dL (15.0-23.0); O2Hb 98.3 % (92.0-98.0); PCO2 46.3 mmHg (35.0-45.0); pH 7.399 (7.360-7.450); tCO2 29.4 mmol/L (24.0-30.0)
[2016-05-02 04:50] LABS: STICK SITE R.RADIAL
[2016-05-02 04:51] LABS: TIDAL VOLUME 450 ml
[2016-05-02 04:54] LABS: ALBUMIN 2.1 g/dL (3.4-5.0); CALCIUM 8.1 mg/dL (8.5-10.1); PHOSPHORUS 3.9 mg/dL (2.5-4.9); POTASSIUM 4.5 mmol/L (3.5-5.1)
[2016-05-02 05:00] LABS: CREATININE 6.7 mg/dL (0.6-1.3)
[2016-05-03] VITALS (40 sets, daily range): BP systolic 146–235; BP diastolic 88–109
[2016-05-03 03:26] LABS: ABSOLUTE NEUTROPHILS 4.7 thou/uL (1.4-8.2); BASOPHILS 0.6 % (0.0-2.0); EOSINOPHILS 1.5 % (0.0-3.0); HEMATOCRIT 26.3 % (42.0-52.0); HEMOGLOBIN 8.7 gm/dL (14.0-18.0); LYMPHOCYTES 18.6 % (24.0-44.0); MCH 31.1 pg (26.0-34.0); MCHC 33.3 % (28.0-37.0); MCV 93.5 fL (80.0-100.0); MONOCYTES 11.5 % (1.0-8.0); PLATELET COUNT 320 thou/uL (150-400); POLYS 67.8 % (36.0-66.0); RBC 2.81 mil/uL (4.50-6.00); RDW 18.4 % (10.5-14.5); WBC 6.9 thou/uL (4.0-11.0)
[2016-05-03 03:42] LABS: CALCIUM 8.1 mg/dL (8.5-10.1); PHOSPHORUS 3.6 mg/dL (2.5-4.9); POTASSIUM 4.1 mmol/L (3.5-5.1)
[2016-05-03 03:44] LABS: MANUAL DIFF NO
[2016-05-03 04:13] LABS: CREATININE 5.4 mg/dL (0.6-1.3)
[2016-05-04] VITALS (49 sets, daily range): BP systolic 134–223; BP diastolic 81–109
[2016-05-04 05:33] LABS: HEMATOCRIT 26.6 % (42.0-52.0); HEMOGLOBIN 8.9 gm/dL (14.0-18.0); MCH 31.1 pg (26.0-34.0); MCHC 33.4 % (28.0-37.0); MCV 93.1 fL (80.0-100.0); RBC 2.86 mil/uL (4.50-6.00); RDW 18.2 % (10.5-14.5)
[2016-05-04 05:58] LABS: CALCIUM 8.2 mg/dL (8.5-10.1); PHOSPHORUS 4.5 mg/dL (2.5-4.9); POTASSIUM 4.4 mmol/L (3.5-5.1)
[2016-05-05] VITALS (66 sets, daily range): BP systolic 130–222; BP diastolic 80–115
[2016-05-05 05:26] LABS: HEMATOCRIT 24.6 % (42.0-52.0); HEMOGLOBIN 8.1 gm/dL (14.0-18.0); MCH 30.8 pg (26.0-34.0); MCV 93.4 fL (80.0-100.0); RBC 2.63 mil/uL (4.50-6.00); RDW 17.7 % (10.5-14.5); WBC 5.6 thou/uL (4.0-11.0)
[2016-05-05 05:38] LABS: ALBUMIN 1.8 g/dL (3.4-5.0); CALCIUM 8.2 mg/dL (8.5-10.1); PHOSPHORUS 4.8 mg/dL (2.5-4.9); POTASSIUM 4.4 mmol/L (3.5-5.1)
[2016-05-05 05:42] LABS: CREATININE 8.4 mg/dL (0.6-1.3)
[2016-05-06] VITALS (32 sets, daily range): BP systolic 137–261; BP diastolic 77–120
[2016-05-06 04:50] LABS: HEMATOCRIT 26.4 % (42.0-52.0); HEMOGLOBIN 8.6 gm/dL (14.0-18.0); MCH 30.1 pg (26.0-34.0); MCHC 32.7 % (28.0-37.0); MCV 92.2 fL (80.0-100.0); RBC 2.86 mil/uL (4.50-6.00); RDW 18.4 % (10.5-14.5); WBC 8.4 thou/uL (4.0-11.0)
[2016-05-06 05:05] LABS: ALBUMIN 2.1 g/dL (3.4-5.0); CALCIUM 8.3 mg/dL (8.5-10.1); MAGNESIUM 2.1 mg/dL (1.8-2.4); POTASSIUM 4.6 mmol/L (3.5-5.1); TOTAL BILIRUBIN 0.4 mg/dL (<0.1-1.0); TOTAL PROTEIN 6.6 g/dL (6.4-8.2)
[2016-05-06 05:18] LABS: ABG SAMPLE TYPE ARTERIAL; BE(vivo) -0.2 mmol/L (-2 to +3); HCO3 24.2 mmol/L (22.0-26.0); LACTATE 1.27 mmol/L (0.5-2.0); O2(CT) 13.2 mL/dL (15.0-23.0); O2Hb 94.4 % (92.0-98.0); PCO2 38.3 mmHg (35.0-45.0); PO2 79.9 mmHg (80.0-100.0); STICK SITE R.RADIAL; pH 7.418 (7.360-7.450); tCO2 25.3 mmol/L (24.0-30.0)
[2016-05-06 05:19] LABS: TIDAL VOLUME 450 ml
[2016-05-07] VITALS (47 sets, daily range): BP systolic 116–210; BP diastolic 76–111
[2016-05-07 05:17] LABS: ALBUMIN 2.1 g/dL (3.4-5.0); CALCIUM 8.3 mg/dL (8.5-10.1); PHOSPHORUS 4.1 mg/dL (2.5-4.9); POTASSIUM 4.9 mmol/L (3.5-5.1)
[2016-05-07 05:19] LABS: CREATININE 7.7 mg/dL (0.6-1.3)
[2016-05-08] VITALS (26 sets, daily range): BP systolic 126–207; BP diastolic 78–108
[2016-05-08 03:55] LABS: ABG COMMENT A/C RATE 20; ABG SAMPLE TYPE ARTERIAL; BE(vivo) 3.6 mmol/L (-2 to +3); HCO3 29.3 mmol/L (22.0-26.0); LACTATE 2.31 mmol/L (0.5-2.0); O2(CT) 13.5 mL/dL (15.0-23.0); PCO2 49.9 mmHg (35.0-45.0); PO2 131.7 mmHg (80.0-100.0); STICK SITE R.RADIAL; TIDAL VOLUME 450 ml; pH 7.386 (7.360-7.450); sO2 98.6 % (92.0-98.0); tCO2 30.8 mmol/L (24.0-30.0)
[2016-05-08 04:15] LABS: RBC 2.66 mil/uL (4.50-6.00); WBC 8.9 thou/uL (4.0-11.0)
[2016-05-08 04:16] LABS: HEMATOCRIT 24.2 % (42.0-52.0); HEMOGLOBIN 8.2 gm/dL (14.0-18.0); MCH 30.8 pg (26.0-34.0); MCHC 33.7 % (28.0-37.0); MCV 91.3 fL (80.0-100.0); RDW 17.6 % (10.5-14.5)
[2016-05-08 04:27] LABS: ALBUMIN 2.1 g/dL (3.4-5.0); CALCIUM 8.4 mg/dL (8.5-10.1); MAGNESIUM 2.2 mg/dL (1.8-2.4); PHOSPHORUS 3.6 mg/dL (2.5-4.9); POTASSIUM 4.4 mmol/L (3.5-5.1)
[2016-05-08 04:29] LABS: CREATININE 5.6 mg/dL (0.6-1.3)
[2016-05-09] VITALS (30 sets, daily range): BP systolic 120–199; BP diastolic 68–118
[2016-05-09 05:17] LABS: HEMATOCRIT 21.4 % (42.0-52.0); MCH 30.5 pg (26.0-34.0); MCHC 32.6 % (28.0-37.0); MCV 93.4 fL (80.0-100.0); RBC 2.29 mil/uL (4.50-6.00); RDW 17.3 % (10.5-14.5); WBC 12.5 thou/uL (4.0-11.0)
[2016-05-09 05:46] LABS: CALCIUM 8.3 mg/dL (8.5-10.1); POTASSIUM 4.8 mmol/L (3.5-5.1)
[2016-05-09 05:51] LABS: CREATININE 7.6 mg/dL (0.6-1.3)
[2016-05-10] VITALS (23 sets, daily range): BP systolic 117–221; BP diastolic 71–110
[2016-05-10 05:16] LABS: HEMATOCRIT 21.7 % (42.0-52.0); HEMOGLOBIN 7.2 gm/dL (14.0-18.0); MCH 30.2 pg (26.0-34.0); MCHC 33.1 % (28.0-37.0); MCV 91.4 fL (80.0-100.0); PLATELET COUNT 302 thou/uL (150-400); RBC 2.38 mil/uL (4.50-6.00); RDW 16.9 % (10.5-14.5); WBC 12.8 thou/uL (4.0-11.0)
[2016-05-10 05:27] LABS: MANUAL DIFF YES
[2016-05-10 05:33] LABS: ALBUMIN 2.2 g/dL (3.4-5.0); CALCIUM 8.4 mg/dL (8.5-10.1); CREATININE 5.3 mg/dL (0.6-1.3); PHOSPHORUS 3.4 mg/dL (2.5-4.9); POTASSIUM 4.2 mmol/L (3.5-5.1)
[2016-05-10 09:05] LABS: ABSOLUTE NEUTROPHILS 11.8 thou/uL (1.4-8.2); HYPOCHROMASIA 2+; TOTAL CELL COUNT 100
[2016-05-11] VITALS (15 sets, daily range): BP systolic 147–197; BP diastolic 76–108
[2016-05-11 04:51] LABS: HEMATOCRIT 22.3 % (42.0-52.0); HEMOGLOBIN 7.2 gm/dL (14.0-18.0); MCH 29.7 pg (26.0-34.0); MCHC 32.2 % (28.0-37.0); MCV 92.3 fL (80.0-100.0); PLATELET COUNT 325 thou/uL (150-400); RBC 2.42 mil/uL (4.50-6.00); RDW 17.4 % (10.5-14.5); WBC 18.5 thou/uL (4.0-11.0)
[2016-05-11 04:56] LABS: MANUAL DIFF YES
[2016-05-11 04:59] LABS: CALCIUM 8.4 mg/dL (8.5-10.1); POTASSIUM 4.7 mmol/L (3.5-5.1)
[2016-05-11 05:13] LABS: CREATININE 7.1 mg/dL (0.6-1.3)
[2016-05-11 05:28] LABS: ABSOLUTE NEUTROPHILS 17.6 thou/uL (1.4-8.2); ANISOCYTOSIS 2+; MACROCYTES 1+; TOTAL CELL COUNT 100
[2016-05-11 20:57] LABS: ABG SAMPLE TYPE ARTERIAL; BE(vivo) -0.4 mmol/L (-2 to +3); HCO3 23.9 mmol/L (22.0-26.0); LACTATE 0.92 mmol/L (0.5-2.0); O2(CT) 11.1 mL/dL (15.0-23.0); O2Hb 97.4 % (92.0-98.0); PCO2 37.3 mmHg (35.0-45.0); PO2 120.8 mmHg (80.0-100.0); pH 7.424 (7.360-7.450); sO2 98.5 % (92.0-98.0)
[2016-05-11 20:58] LABS: ABG COMMENT CMV; STICK SITE R.BRACHIAL; TIDAL VOLUME 450 ml
[2016-05-12] VITALS (25 sets, daily range): BP systolic 114–202; BP diastolic 67–97
[2016-05-13] VITALS (34 sets, daily range): BP systolic 125–218; BP diastolic 65–110
[2016-05-13 04:49] LABS: HEMATOCRIT 21.9 % (42.0-52.0); HEMOGLOBIN 7.1 gm/dL (14.0-18.0); MCH 29.7 pg (26.0-34.0); MCHC 32.3 % (28.0-37.0); MCV 91.9 fL (80.0-100.0); RBC 2.38 mil/uL (4.50-6.00); RDW 17.9 % (10.5-14.5)
[2016-05-13 04:58] LABS: ALBUMIN 2.2 g/dL (3.4-5.0); CALCIUM 8.4 mg/dL (8.5-10.1); PHOSPHORUS 5.7 mg/dL (2.5-4.9); POTASSIUM 5.7 mmol/L (3.5-5.1)
[2016-05-13 05:59] LABS: CREATININE 10.2 mg/dL (0.6-1.3)
[2016-05-13 15:09] LABS: ABG SAMPLE TYPE ARTERIAL; BE(vivo) 3.1 mmol/L (-2 to +3); HCO3 26.6 mmol/L (22.0-26.0); LACTATE 1.07 mmol/L (0.5-2.0); O2(CT) 12.7 mL/dL (15.0-23.0); O2Hb 97.6 % (92.0-98.0); PCO2 36.4 mmHg (35.0-45.0); PO2 120.6 mmHg (80.0-100.0); STICK SITE L.RADIAL; TIDAL VOLUME 450 ml; pH 7.482 (7.360-7.450); sO2 98.6 % (92.0-98.0); tCO2 27.7 mmol/L (24.0-30.0)
[2016-05-13 16:09] LABS: ABG COMMENT POST APNEA TEST; ABG SAMPLE TYPE ARTERIAL; BE(vivo) 3.6 mmol/L (-2 to +3); HCO3 26.9 mmol/L (22.0-26.0); LACTATE 0.99 mmol/L (0.5-2.0); O2(CT) 12.4 mL/dL (15.0-23.0); O2Hb 98.3 % (92.0-98.0); PO2 208.4 mmHg (80.0-100.0); STICK SITE R.RADIAL; pH 7.503 (7.360-7.450); sO2 99.5 % (92.0-98.0); tCO2 27.9 mmol/L (24.0-30.0)
[2016-05-14] VITALS (37 sets, daily range): BP systolic 122–175; BP diastolic 70–100
[2016-05-15] VITALS (31 sets, daily range): BP systolic 129–203; BP diastolic 76–129
[2016-05-16] VITALS: BP 176/84
[2016-05-16 04:00] VITALS: BP 157/65
[2016-05-16 08:00] VITALS: BP 164/78
[2016-05-16 12:00] VITALS: BP 178/87
[2016-05-16 16:00] VITALS: BP 167/89
[2016-05-16 20:15] VITALS: BP 146/68
[2016-05-17] VITALS (7 sets, daily range): BP systolic 126–177; BP diastolic 62–80
[2016-05-18 06:01] VITALS: BP 137/73
[2016-05-18 08:00] VITALS: BP 161/86
[2016-05-18 12:00] VITALS: BP 137/73
[2016-05-18 16:00] VITALS: BP 143/84
== END 2016-05-20 15:54 | DRG 4 ==
LOC: ER 05:07 → ICU 06:36 → EROBS 06:36 → ICU 07:20 → 4S 05-15 18:20
PROVIDERS: Emergency Medicine; Family Medicine; Hospitalist; Internal Medicine Nephrology; Internal Medicine Pulmonary Disease
PROC: 5A1955Z Respiratory Ventilation, Greater than 96 Consecutive Hours (ICD-10-PCS; principal; 2016-04-28)
PROC: 02H633Z Insertion of Infusion Device into Right Atrium, Percutaneous Approach (ICD-10-PCS; 2016-04-29)
PROC: 0DH63UZ Insertion of Feeding Device into Stomach, Percutaneous Approach (ICD-10-PCS; 2016-05-12)
PROC: 5A1D60Z (ICD-10-PCS; 2016-05-12)
PROC: 0B110F4 Bypass Trachea to Cutaneous with Tracheostomy Device, Open Approach (ICD-10-PCS; 2016-05-13)
DX: J96.00 Acute respiratory failure, unspecified whether with hypoxia or hypercapnia (principal); N18.6 End stage renal disease; I50.43 Acute on chronic combined systolic (congestive) and diastolic (congestive) heart failure; I42.9 Cardiomyopathy, unspecified; G93.1 Anoxic brain damage, not elsewhere classified; I13.11 Hypertensive heart and chronic kidney disease without heart failure, with stage 5 chronic kidney disease, or end stage renal disease; G40.909 Epilepsy, unspecified, not intractable, without status epilepticus; E11.22 Type 2 diabetes mellitus with diabetic chronic kidney disease; E87.5 Hyperkalemia; E11.649 Type 2 diabetes mellitus with hypoglycemia without coma; F03.90 Unspecified dementia, unspecified severity, without behavioral disturbance, psychotic disturbance, mood disturbance, and anxiety; D63.1 Anemia in chronic kidney disease; D72.829 Elevated white blood cell count, unspecified; E11.65 Type 2 diabetes mellitus with hyperglycemia; F17.210 Nicotine dependence, cigarettes, uncomplicated; Z88.8 Allergy status to other drugs, medicaments and biological substances; Z82.49 Family history of ischemic heart disease and other diseases of the circulatory system; Z83.3 Family history of diabetes mellitus; Z88.6 Allergy status to analgesic agent; Z99.2 Dependence on renal dialysis; Z79.899 Other long term (current) drug therapy; K21.9 Gastro-esophageal reflux disease without esophagitis; Z51.5 Encounter for palliative care; Z66 Do not resuscitate
CPT/HCPCS: 10078; 10100; 32100; 50101; 50386; 50403; 50517; 56525; 62110; 62900